=== PATIENT | male | born 1950 | race Caucasian/White ===

== ENCOUNTER → 2019-11-20 | Emergency (ER) | payer OTHER, BC ==
[~2019-11-20] VITALS: Ht 180.3 cm; Wt 77.1 kg
[2019-11-20 19:14] VITALS: BP_SYST 198
== END | disposition still patient (30) ==
LOC: SED 19:14
DX: R05 Cough (principal); R09.81 Nasal congestion; Z53.21 Procedure and treatment not carried out due to patient leaving prior to being seen by health care provider